=== PATIENT | male | born 1960 | race Caucasian/White ===

== ENCOUNTER → 2024-11-29 11:19 | Outpatient (REF) | payer OTHER, SELFPAY | LOC: HWRAD 11:19 | PROVIDERS: ATTENDING PHYSICIAN Student in an Organized Health Care Education/Training Program | DX: R22.1 Localized swelling, mass and lump, neck (principal) | CPT/HCPCS: 76536 ==

== ENCOUNTER → 2024-12-06 16:54 | Outpatient (REF) | payer OTHER, SELFPAY | LOC: CLAB 16:54 | PROVIDERS: ATTENDING PHYSICIAN Otolaryngology | DX: R22.1 Localized swelling, mass and lump, neck (principal) | CPT/HCPCS: 88173 ==

== ENCOUNTER 2025-01-01 11:35 | Day surgery (SDC) | payer OTHER, SELFPAY ==
[2024-12-21 11:25] LABS: Hematocrit 40.6 % (39.0-52.0); INR 1.01; Mean Corp Hgb Conc. 34.5 g/dL (33.0-37.0); Mean Corpuscular Hgb 32.1 pg (27.0-31.0); Mean Corpuscular Volume 93.1 fL (80.0-94.0); Mean Platelet Volume 10.9 fL (7.4-10.4); PT 13.6 Sec (11.4-14.6); Platelet Count 191 10^3/uL (130-400); Red Blood Cell Count 4.36 10^6/uL (4.70-6.10); White Blood Cell Count 6.2 10^3/uL (4.8-10.8)
[2024-12-21 11:26] LABS: APTT 31.7 Sec (23.4-35.0)
[2024-12-21 11:33] LABS: ALT (SGPT) 30 U/L (0-50); AST (SGOT) 29 U/L (17-59); Albumin 4.4 g/dl (3.5-5.0); Alkaline Phosphatase 98 U/L (38-126); Blood Urea Nitrogen 23 mg/dl (9-20); Calcium 9.3 mg/dl (8.4-10.2); Carbon Dioxide 27 mmol/L (22-30); Chloride 103 mmol/L (98-107); Glucose 94 mg/dl (70-99); Potassium 4.5 mmol/L (3.5-5.1); Sodium 140 mmol/L (135-145); Total Bilirubin 1.2 mg/dl (0.2-1.3); Total Protein 7.2 g/dl (6.3-8.2); eGFR > 60.00
[2024-12-21 14:05] VITALS: BMI 34.7
[2025-01-01] VITALS (10 sets, daily range): BP systolic 128–149; BP diastolic 63–95; BMI 34.7
[2025-01-01] MEDS: NORMOSOL-R/PLASMALYTE-A 1000 IV (11:57)
[2025-01-01] MEDS: TYLENOL 1000 MG PO (12:01)
[2025-01-01] MEDS: NEURONTIN 300 MG PO (12:01)
[2025-01-01] MEDS: HEPARIN 5000 UNITS SC (13:08)
[2025-01-01] MEDS: ZOFRAN 4 MG IV (16:51)
[2025-01-01] MEDS: DILAUDID 0.5 MG IV (16:55)
[2025-01-01] MEDS: DILAUDID 0.25 MG IV (17:10)
[2025-01-01] MEDS: TYLENOL 650 MG PO (18:49)
--- NOTE | 2025-01-08 09:43 | OR.RPT ---
Operative Report
Operative Report
DATE OF OPERATION: January 01, 2025
PREOPERATIVE DIAGNOSIS: �Thyroid Cancer - C73
POSTOPERATIVE DIAGNOSIS: Same
SURGEON: Willie Palomares M.D.
OPERATION: �Total Thyroidectomy Full Neck Dissection - 24727
ANESTHESIA: GET
ESTIMATED BLOOD LOSS: 10 cc
DRAINS: None
SPECIMEN: �Delphian lymph node, total thyroid and right level paratracheal tissue
FINDINGS: a massive thyroid with significant scarring
COMPLICATIONS:� None
PROCEDURE:
The patient was taken to the operating room and placed in the usual supine position. After adequate general endotracheal anesthesia was established, the patient�s neck was extended, prepped, and draped in the typical sterile fashion. A 6 cm
transcervical incision was made two fingerbreadths above the sternal notch. The skin incision was made with the #15 blade, which was taken through the skin into the subcutaneous tissue. The underlying platysma muscle was divided, and subplatysmal
flaps were created superiorly to the thyroid cartilage and inferiorly to the sternal notch. Strap muscles were identified and at the midline.
Attention was turned to the patient�s left thyroid lobe. The left thyroid lobe was mobilized medially. During this process, the left middle thyroid vein and inferior thyroid artery were dissected and ligated with Ligasure. Next, the left superior
pole was taken down by dissecting and transecting the superior pole vessels with a Ligasure. The left thyroid lobe was mobilized medially. During this process, the left recurrent laryngeal nerve was identified and preserved throughout its entire
course. The left superior and inferior parathyroid glands were was identified and preserved.
Attention was turned to the patient�s right thyroid lobe. An attempt was made to mobilize the massive hard right thyroid lobe, but due the large size and induration, the left strap muscles were divided with a 90-STACIE. The right lobe was mobilized
medially. During this process, the right middle thyroid vein and inferior thyroid artery were dissected and ligated with Ligasure. There was a substernal extension, which was delivered out of the mediastinum through the cervical incision. Next, the
right superior pole was taken down by dissecting and transecting the superior pole vessels with a Ligasure. The right thyroid lobe was mobilized medially. During this process, the right recurrent laryngeal nerve was identified and preserved
throughout its entire course. The right superior parathyroid gland was identified and preserved. The total thyroid was resected off the trachea and sent to the pathology department.
At this time, the right level six neck dissection was performed. The tissue between the right carotid artery to the trachea into the anterior mediastinum was carefully dissected. The previously identified recurrent laryngeal nerve and parathyroid
glands were preserved. The tissue was removed and sent to the pathology department.
After obtaining adequate hemostasis, the strap muscle was approximated with #3-0 Vicryl in a running fashion, and platysma muscles were reapproximated with #3-0 Vicryl in an interrupted fashion, and the skin was approximated with #4-0 Monocryl in a
running subcuticular fashion. Steri-strips and sterile dressings were placed. The patient tolerated the procedure well. The final instrument, needle, and sponge counts were correct.
== END 2025-01-01 18:52 | disposition home or self-care (01) ==
LOC: SDS 11:35
PROVIDERS: ATTENDING PHYSICIAN Surgery; FAMILY PHYSICIAN Student in an Organized Health Care Education/Training Program; OTHER PHYSICIAN Internal Medicine Cardiovascular Disease
DX: C73 Malignant neoplasm of thyroid gland (principal); E06.3 Autoimmune thyroiditis
CPT/HCPCS: 60254; 88305; 88307; 88311; 36415; 80053; 85027; 85610; 85730; C1776; C9250

== ENCOUNTER → 2025-04-29 10:18 | Outpatient (REF) | payer OTHER, SELFPAY ==
[2025-04-29 11:46] LABS: TSH 1.93 uIU/ml (0.47-4.68)
[2025-05-01 23:37] LABS: Thyroglobulin Antibodies 7.4 IU/mL (0.0-4.0)
== END ==
LOC: REG 10:18
PROVIDERS: ATTENDING PHYSICIAN Internal Medicine Endocrinology, Diabetes & Metabolism; FAMILY PHYSICIAN Student in an Organized Health Care Education/Training Program
DX: C73 Malignant neoplasm of thyroid gland (principal)
CPT/HCPCS: 36415; 84432; 84443; 86376; 86800